=== PATIENT | female | born 1990 | race Caucasian/White ===

== ENCOUNTER 2019-03-14 16:46 | Emergency (ER) | payer OTHER, SELFPAY ==
[2019-03-14 16:50] VITALS: BP 135/84; PULSE 102; RESP 20; TEMP 36.7; O2SAT 100; BMI 20.9
--- NOTE | 2019-03-14 18:39 | ED.NECK ---
HPI - Neck Pain/Injury <PAMELA Bradley-BC - Last Filed: 03/14/19 20:00> General Chief Complaint: Neck Pain/Injury Stated Complaint: thinks pulled left side neck muscle week ago,numb Time Seen by Provider: 03/14/19 18:22 Source: patient and family Mode of arrival: ambulatory Limitations: no limitations History of Present Illness HPI Narrative: The patient is a 28-year-old nonsmoker with history of severe endometriosis who presents with a chief complaint of left-sided neck pain for a week. She states she thinks she pulled a muscle in her neck, and then has had progressive ?funny feelings in her arm on her left side. She states she has had some pins and needles. She has been taking ibuprofen on occasion for this. Last dose this morning. She states this morning her left leg felt funny, so she decided to get it checked out. She states it hurts when he pressed on the side of her left neck muscle. She denies any injury or trauma fall fever nausea vomiting or diarrhea. She denies any confusion or slurred speech. She denies any possibility of as she is having menopause medically induced for her endometriosis and has had hysterectomy. She denies any visual deficit. The patient has baseline nystagmus. No aphasia, no dysarthria. states that she is looking and acting normal for her. Related Data Previous Rx's Medication Instructions Recorded cyclobenzaprine 10 mg PO TID PRN #30 tab 03/14/19 ketorolac 10 mg PO TID PRN #14 tab 03/14/19 Allergies Allergy/AdvReac Type Severity Reaction Status Date / Time Sulfa (Sulfonamide Allergy Verified 03/14/19 19:52 Antibiotics) Review of Systems <DOYLE Bradley - Last Filed: 03/14/19 20:00> Review of Systems GENERAL: Denies chills, fatigue, malaise, fever, sweats. HEENT: Denies sinus pain, ear pain, sore throat, difficulty swallowing, dizziness. RESPIRATORY: Denies dyspnea, cough, wheezing, hemoptysis, sputum. CARDIOVASCULAR: Denies chest pain, palpitations, orthopnea, edema, GASTROINTESTINAL: Denies nausea, vomiting, abdominal pain, diarrhea, constipation, melena. : Denies dysuria, frequency, incontinence, hematuria, urinary retention. MUSCULOSKELETAL: See HPI SKIN: Denies rash, skin lesions, or other NEUROLOGIC: See HPI PSYCHIATRIC: No concerning psychosocial issues. 12 point review of systems is negative except for those stated above PFSH <DOYLE Bradley - Last Filed: 03/14/19 20:00> Medical History (Updated 03/14/19 @ 19:51 by DOYLE Bradley) Endometriosis (Acute) Social History Smoking Status: Never smoker Social History Smoking Status: Never smoker Exam <DOYLE Bradley - Last Filed: 03/14/19 20:00> Narrative Exam Narrative: GENERAL: This is a well-nourished, well-developed patient, no acute distress HEAD: Atraumatic. Normocephalic. No temporal or scalp tenderness. EYES: Pupils equal round and reactive. Extraocular motions intact. No scleral icterus. No injection or drainage. Baseline nystagmus noted. ENT: Nose without bleeding, purulent drainage or septal hematoma. Throat without erythema, tonsillar hypertrophy or exudate. Uvula midline. Airway patent. NECK: Trachea midline. No JVD or lymphadenopathy. Supple, nontender, no meningeal signs. CARDIOVASCULAR: Regular rate and rhythm without murmurs, gallops, or rubs. RESPIRATORY: Clear to auscultation. Breath sounds equal bilaterally. No wheezes, rales, or rhonchi. GASTROINTESTINAL: Abdomen soft, non-tender, nondistended. No hepato-splenomegaly, or palpable masses. No guarding. EXTREMITIES: No clubbing, cyanosis, or edema. No joint tenderness, effusion, or edema noted. Strength is equal upper and lower extremities bilaterally. Stable gait. Sensation intact all 4 extremities. Patient able to differentiate sharp versus dull all 4 extremities. Pain to palpation left sternocleidomastoid BACK: Nontender without deformity or crepitance. No flank tenderness. No pain to palpation C T or L-spine. NEURO: AOx3. No gross cranial nerve deficit. Stable gait. Using all extremities equally. SKIN: No rash or erythema. Initial Vital Signs Initial Vital Signs: Vital Signs Temperature 98.0 F 03/14/19 16:50 Pulse Rate 102 H 03/14/19 16:50 Respiratory Rate 20 03/14/19 16:50 Blood Pressure 135/84 03/14/19 16:50 Pulse Oximetry 100 03/14/19 16:50 <Lokesh Borden DO - Last Filed: 03/14/19 23:25> Initial Vital Signs Initial Vital Signs: Vital Signs Temperature 98.0 F 03/14/19 16:50 Pulse Rate 102 H 03/14/19 16:50 Respiratory Rate 20 03/14/19 16:50 Blood Pressure 135/84 03/14/19 16:50 Pulse Oximetry 100 03/14/19 16:50 Scores <DOYLE Bradley - Last Filed: 03/14/19 20:00> ABCD2 Age >= 60 years: no Initial BP. Either SBP >= 140 or DBP >= 90.: no Clinical features of the TIA: other symptoms Duration of symptoms: < 10 minutes History of diabetes: no ABCD2 Score: 0 Course <DOYLE Bradley - Last Filed: 03/14/19 20:00> Orders Ordered: Discontinued Medications Cyclobenzaprine HCl (Flexeril) 10 mg PO NOW ONE Stop: 03/14/19 18:39 Last Admin: 03/14/19 18:55 Dose: 10 mg Cyclobenzaprine HCl (Flexeril 10 Mg Prepack) 1 bottle MISC SEEINSTR ONE Stop: 03/14/19 19:46 Last Admin: 03/14/19 19:52 Dose: 1 bottle Ketorolac Tromethamine (Toradol) 60 mg IM NOW ONE Stop: 03/14/19 18:39 Last Admin: 03/14/19 18:54 Dose: 60 mg Ketorolac Tromethamine (Toradol 10mg Prepack) 1 bottle MISC SEEINSTR ONE Stop: 03/14/19 19:46 Last Admin: 03/14/19 19:53 Dose: 1 bottle Vital Signs - 8 hr 03/14/19 16:50 03/14/19 19:49 Temperature 98.0 F Pulse Rate 102 H 60 Respiratory Rate 20 14 Blood Pressure 135/84 Blood Pressure [Right Arm] 113/72 Pulse Oximetry 100 98 <Lokesh Borden DO - Last Filed: 03/14/19 23:25> Orders Ordered: Discontinued Medications Cyclobenzaprine HCl (Flexeril) 10 mg PO NOW ONE Stop: 03/14/19 18:39 Last Admin: 03/14/19 18:55 Dose: 10 mg Cyclobenzaprine HCl (Flexeril 10 Mg Prepack) 1 bottle MISC SEEINSTR ONE Stop: 03/14/19 19:46 Last Admin: 03/14/19 19:52 Dose: 1 bottle Ketorolac Tromethamine (Toradol) 60 mg IM NOW ONE Stop: 03/14/19 18:39 Last Admin: 03/14/19 18:54 Dose: 60 mg Ketorolac Tromethamine (Toradol 10mg Prepack) 1 bottle MISC SEEINSTR ONE Stop: 03/14/19 19:46 Last Admin: 03/14/19 19:53 Dose: 1 bottle Vital Signs - 8 hr 03/14/19 16:50 03/14/19 19:49 Temperature 98.0 F Pulse Rate 102 H 60 Respiratory Rate 20 14 Blood Pressure 135/84 Blood Pressure [Right Arm] 113/72 Pulse Oximetry 100 98 MDM - Neck Pain/Injury <PAMELA Bradley-BC - Last Filed: 03/14/19 20:00> MDM Narrative Medical decision making narrative: The patient is a 28-year-old female who presents with a chief complaint of ?I think I pulled a muscle in the left side of my neck. She has since had numbness and tingling sensation in her left arm, which also happened in her left leg. She has a negative bE FAST, negative NIH, and her symptoms improved with Toradol and Flexeril. Given her exam, I will treat her for muscle spasm. I discussed at length follow up with her primary care provider for further workup if needed. Discussed with back to the ER for any acute concerns such as chest pain or shortness of breath. Discharge Plan Departure Patient Disposition: Home Clinical Impression: Strain of neck muscle Qualifiers: Encounter type: initial encounter Qualified Code(s): S16.1XXA - Strain of muscle, fascia and tendon at neck level, initial encounter Discharge Date/Time: 03/14/19 19:59 Interventions: ED Discharge Assessment Last Done: 03/14/19 19:58 Instructions: Neck Sprain, DI for Neck Pain Activity Restrictions/Additional Instructions: I have given you prescriptions for a muscle relaxer and a prescription anti-inflammatory. Please do not combine Toradol with ibuprofen, Aleve or other NSAIDs. Please come back to emergency department for any acute concerns. Please follow up with primary care provider as physical therapy, and/or further workup might be needed. Please come back to the emergency department for any acute concerns. Prescriptions: New cyclobenzaprine 10 mg tablet 10 mg PO TID PRN (Reason: muscle spasm) Qty: 30 RF: 0 ketorolac 10 mg tablet 10 mg PO TID PRN (Reason: pain) Qty: 14 RF: 0 <Lokesh Borden DO - Last Filed: 03/14/19 23:25> [facility] Attestation: I was available for consultation during this patient's emergency department encounter
[2019-03-14] MEDS: KETOROLAC 60 MG/2 ML VIAL IM (18:54)
[2019-03-14] MEDS: CYCLOBENZAPRINE 10 MG TABLET PO (18:55)
[2019-03-14 19:49] VITALS: BP 113/72; PULSE 60; RESP 14; O2SAT 98
[2019-03-14] MEDS: CYCLOBENZAPRINE 10 MG PREPACK 1 BOTTLE MISC (19:52)
[2019-03-14] MEDS: KETOROLAC 10MG PREPACK 1 BOTTLE MISC (19:53)
== END 2019-03-14 19:59 | disposition home or self-care (01) ==
PROVIDERS: Emergency Provider Nurse Practitioner Family
DX: S16.1XXA Strain of muscle, fascia and tendon at neck level, initial encounter (principal)
CPT/HCPCS: 96372; 99282; 99283; J1885